=== PATIENT | male | born 1970 | race Caucasian/White ===

== ENCOUNTER 2022-02-16 10:57 | Emergency (ER) | payer OTHER, SELFPAY ==
[2022-02-16 11:04] VITALS: BP 127/87; PULSE 65; RESP 16; TEMP 35.8; O2SAT 93
--- NOTE | 2022-02-16 11:57 | ED_ITS ---
HPI - Eye Problem General Chief complaint: Eye Problems Stated complaint: Poked in the the eye Time Seen by Provider: 02/16/22 11:57 Source: patient Mode of arrival: ambulatory Limitations: no limitations History of Present Illness HPI Narrative: this 51-year-old man presents to the emergency department with complaint of left eye pain. He was poked he thinks by his 6-year-old sons fingernail last night. He is from [place] visiting now here today having arrived yesterday I believe. Does wear contacts. Did try treating with Visine and was slightly helpful. He has not had any visual changes any is not particularly photophobic. Underlying constant discomfort; just really hurts more when he blinks. He describes pain in the upper outer left eye. No concern of foreign body. No purulent drainage described. otherwise I note him to be with lower oxygen saturations upon triage. He denies feeling particularly short of breath, no chest pain, No reported fevers. Does not have sleep apnea he knows of. He does track his oxygen saturations with an abbie/ Watch. Apparently last night did go to 94%. Eye Symptoms: other Mechanism: direct trauma If Pain, Quality: aching Treatments Prior to Arrival: OTC eye drops Related Data Home Medications Medication Instructions Recorded Confirmed azilsartan medoxomil 40 1 tab PO DAILY 02/16/22 02/16/22 mg-chlorthalidone 12.5 mg tablet (Edarbyclor) pravastatin 10 mg tablet 10 mg PO DAILY 02/16/22 02/16/22 Allergies Allergy/AdvReac Type Severity Reaction Status Date / Time No Known Allergies Allergy Verified 02/16/22 11:11 Review of Systems Status of ROS: Reports: 10 or more systems reviewed and unremarkable except as noted in History and below Const: Denies: fever [facility] Medical History (Updated 02/16/22 @ 12:26 by Khanh Douglas MD) Hyperlipidemia Hypertension Social History Smoking Status: Never smoker How often do you have a drink containing alcohol: 4 or more times a week How many standard drinks containing alcohol do you have on a typical day: 1 or 2 AUDIT-C Alcohol total score: 4 Non-prescribed substance use: denies use service: No Exam Narrative: Exam Narrative: Generally well-appearing 51-year-old man in no distress. He is breathing easily. Speaking easily. He is not demonstrating light sensitivity. cranial nerves 2-12 look to be intact. Skin-warm and dry. Tanned. CV-RRR. extremities -moving all extremities without difficulty. Appears well perfused. HEENT - head and face looks to be atraumatic. Extraocular movements are full and not painful. Left eye is watering just a little bit. There is mild scleral injection. On closer inspection I do not see any scleral abrasion, corneal abrasion or with lid eversion any foreign body. no hyphema. I return with tetracaine after verifying allergies, drops placed. This does help with his discomfort. Regardless he allowed for easy exam. Fluorescein dye is placed. There is a comma-shaped area of uptake consistent with light abrasion in the 5 o'clock position of the sclera. Maximal dimension little over 2 mm. I then rinse the eye with normal saline Rinse. A drop of tetracaine is reapplied. Const: Vital Signs, click to edit/add: Vital Signs - 24 hr 02/16/22 11:04 Temperature 96.4 F L Pulse Rate [Left P ulse Oximeter] 65 Respiratory Rate 16 Blood Pressure [Le ft Upper Arm] 127/87 Pulse Oximetry 93 HENMT: Face and sinus: no facial abrasion Course Vital Signs Vital signs: Initial Vital Signs Temperature 96.4 F L 02/16/22 11:04 Temperature Source Temporal Artery Scan 02/16/22 11:04 Pulse Rate 65 02/16/22 11:04 Respiratory Rate 16 02/16/22 11:04 Blood Pressure 127/87 02/16/22 11:04 Blood Pressure Mean 100 02/16/22 11:04 Pulse Oximetry 93 02/16/22 11:04 Oxygen Delivery Method 02/16/22 11:04 Vital Signs Temperature 96.4 F L 02/16/22 11:04 Pulse Rate 65 02/16/22 11:04 Respiratory Rate 16 02/16/22 11:04 Blood Pressure 127/87 02/16/22 11:04 Pulse Oximetry 93 02/16/22 11:04 Temperature 96.4 F L 02/16/22 11:04 Pulse Rate 65 02/16/22 11:04 Respiratory Rate 16 02/16/22 11:04 Blood Pressure 127/87 02/16/22 11:04 Pulse Oximetry 93 02/16/22 11:04 MDM - Eye Problem MDM Narrative Medical decision making narrative: He does not have an apparent corneal abrasion or indication of significant eye trauma beyond the scleral abrasion. I did spend some time with Mr. Trust there are also discussing differential of lower oxygen saturations. Does not appear to be any particular related distress necessitating further emergency department workup in that regard. Discussed further inquiry with primary care provider. Differential Diagnosis Differential diagnosis: Likely corneal abrasion, conjunctivitis, hyphema and subconjunctival hemorrhage Medical Records Medical records narrative: medical records reviewed by me as available from triage documentation. Discharge Plan Discharge Clinical Impression: Abrasion of sclera of left eye Patient Disposition: Home, Self-Care Condition: Improved Additional Instructions: Can take up to 800 mg of ibuprofen per dose. be seen for new loss of vision, inability to control pain, copious purulent drainage, increasing in redness around the eye. for now please a small ribbon of generic eye ointment as needed for comfort; especially before bed. Activity Level: No Restrictions Prescriptions: No Action Edarbyclor 40-12.5 mg tablet 1 tab PO DAILY 0RF pravastatin 10 mg tablet 10 mg PO DAILY 0RF Stand Alone Forms: [employer] Info Instructions
== END 2022-02-16 13:02 | disposition home or self-care (01) ==
PROVIDERS: Emergency Provider Family Medicine
DX: S05.02XA Injury of conjunctiva and corneal abrasion without foreign body, left eye, initial encounter (principal)
CPT/HCPCS: 99283; 99284; A9270